=== PATIENT | male | born 1985 | race Two or more races ===

== ENCOUNTER 2024-11-04 10:13 | Emergency (ER) | payer MEDICAID, SELFPAY ==
[2024-11-04 10:26] VITALS: BP 103/69; PULSE 75; RESP 18; TEMP 37.1; O2SAT 98; BMI 17.3
--- NOTE | 2024-11-04 10:40 | PD.EDRME ---
Rapid Medical Screening Exam RME Arrival date/time: 11/04/24 10:13 39-year-old male presents emergency department today for concerns of elevated blood sugar patient reports no chest pain no shortness of breath no headache dizziness weakness Chief Complaint: General Adult/Misc Complain Vital signs: Vital Signs Temperature 98.7 F 11/04/24 10:26 Pulse Rate 75 11/04/24 10:26 Respiratory Rate 18 11/04/24 10:26 Blood Pressure 103/69 11/04/24 10:26 Pulse Oximetry (%) 98 11/04/24 10:26 Oxygen Delivery Method Room Air 11/04/24 10:26
[2024-11-04 11:34] LABS: Base Excess, Venous 1 (-3-3); O2 Saturation, Venous 91 % (96-97); PCO2, Venous 37 mmHg (36-56); PO2, Venous 56 mmHg (15-58); pH, Venous 7.44 (7.33-7.66)
[2024-11-04 11:38] LABS: Beta Hydroxybutyrate 0.1 mmol/L (<0.6)
[2024-11-04 11:48] LABS: Basophils % (Auto) 0 % (0-2.5); Eosinophils % (Auto) 0 % (0-10); Hematocrit 33.4 % (41.0-53.0); Hemoglobin 12.4 g/dL (13.5-16.0); Immature Granulocytes % (Auto) 1 % (0-0); Immature Granulocytes Auto 0.04 Thou/mm3 (0.00-0.00); Lymphocytes # (Auto) 1.4 Thou/mm3 (1.0-4.8); Lymphocytes % (Auto) 21 % (10-50); Mean Corpuscular HGB Conc 37.1 g/dl (31.0-37.0); Mean Corpuscular Hemoglobin 33.2 pg (25.0-35.0); Mean Corpuscular Volume 90 fL (80-100); Monocytes # (Auto) 0.5 Thou/mm3 (0.0-0.8); Monocytes % (Auto) 7 % (0-12); Neutrophils # (Auto) 4.8 Thou/mm3 (1.8-7.7); Neutrophils % (Auto) 71 % (37-80); Nucleated Red Blood Cell % 0 /100 WBC (0); Platelet Count 234 Thou/mm3 (140-440); RDW Standard Deviation 39.2 fL (35.1-43.9); Red Blood Count 3.73 Miln/mm3 (4.50-5.90); White Blood Count 6.8 Thou/mm3 (3.8-10.6)
[2024-11-04 12:06] LABS: Collection Type, Urine Clean Catch
[2024-11-04 12:11] LABS: Alanine Aminotransferase 89 U/L (10-49); Albumin, Serum 3.5 gm/dL (3.5-5.0); Albumin/Globulin Ratio 1.3 (1.2-2.2); Alcohol, Blood Medical < 10.0 mg/dL (0-10.0); Alkaline Phosphatase 155 U/L (46-116); Anion Gap 6 (7-16); Aspartate Amino Transferase 69 U/L (0-34); BUN/Creatinine Ratio 9 Ratio (12-20); Bilirubin,Total 0.5 mg/dL (0.3-1.2); Blood Urea Nitrogen 8 mg/dL (9-23); Calcium 7.8 mg/dL (8.3-10.6); Calcium (Corrected) 8.2 mg/dL (8.5-10.1); Chloride 94 mMol/L (98-107); Creatinine (Component) 0.9 mg/dL (0.6-1.3); Globulin 2.6 gm/dL (2.3-3.5); Glucose Estimated Average 355 mg/dL (80-131); Hemoglobin A1C > 14.0 % Hgb (4.8-6.0); Osmolality,Calculated 285 (275-295); Potassium 4.4 mMol/L (3.4-5.1); Sodium 123 mMol/L (136-145); Total Protein 6.1 gm/dL (5.7-8.2); eGFR > 60 See Note
[2024-11-04 12:16] LABS: Glucose 792 mg/dL (74-106)
[2024-11-04 12:17] LABS: Bilirubin,Urine Negative (Negative); Blood,Urine Negative (Negative); Clarity,Urine Clear (Clear/Hazy); Color,Urine Colorless (Lt Yel-Yel); Culture Indicated,Urine Not Indicated; Glucose, Urine 4+ (Negative); Ketones,Urine Negative (Negative); Leukocyte Esterase,Urine Negative (Negative); Nitrite,Urine Negative (Negative); Protein,Urine Negative (Neg - Trace); RBC,Urine 2 /hpf (0-3); Specific Gravity,Urine 1.035 (1.001-1.035); Squamous Epithelial Cell,Urine < 1 /hpf (0-5); Urobilinogen,Urine Negative mg/dL (0.0-1.0); WBC,Urine < 1 /hpf (0-5)
--- NOTE | 2024-11-04 13:20 | EDNOTE_ITS ---
ED General RME/HPI General Chief complaint: General Adult/Misc Complain Stated complaint: MY DIABETES IS HIGH Time Seen by Provider: 11/04/24 11:55 Arrival date/time: 11/04/24 10:13 39-year-old male with a history of diabetes presents to the emergency department today for elevated blood sugar. He denies any recent illness with fever, chills, cough, upper respiratory complaints, nausea, vomiting, diarrhea or abdominal pain. He states he has been taking his medications as prescribed however he has not seen his primary care physician since January,. He complains of polydipsia, weight loss, and muscle wasting. Mode of arrival: ambulatory Limitations: language barrier RME / HPI RME / HPI narrative: 11/04/24 10:13 39-year-old male presents emergency department today for concerns of elevated blood sugar patient reports no chest pain no shortness of breath no headache dizziness weakness Related Data Previous Rx's ?Medication ?Instructions ?Recorded blood sugar diagnostic (Blood #50 ea 07/08/23 Glucose Test strips) blood-glucose meter #1 ea 07/08/23 clotrimazole 1 % topical cream 1 applic top BID #15 gr ams 07/08/23 (Antifungal (clotrimazole)) lancets #100 ea 07/08/23 metformin 500 mg tablet 500 mg PO BID #60 tabs 07/08 insulin degludec 100 unit/mL (3 20 unit (0.2 mL) subcu t QDAY #15 mL 07/09/23 mL) subcutaneous pen (Tresiba FlexTouch U-100 insulin) metronidazole-skin cleanser #23 1 ea topical BID #1 ea 07/09/23 0.75 % top,cleanser and cream kit sitagliptin phosphate 100 mg 100 mg PO QDAY #30 tabs 0 07/09/23 tablet (Januvia) Allergies Allergy/AdvReac Type Severity Reaction Status Date / Time No Known Allergies Allergy Verified 11/04/24 10:16 ED Exam Narrative Physical exam: Thin, cachectic appearing 39-year-old male, no respiratory distress noted. General Limitations: Present language barrier Course Orders Category Date Time Status Technical Support Professional STAT Care 11/04/24 12:57 Active DKA Protocol QSHIFT Care 11/04/24 12:57 Active Insert IV NOW Care 11/04/24 10:39 Active Insert IV STAT Care 11/04/24 12:57 Active Intake and Output Routine Care 11/04/24 12:57 Ordered NPO NOW Care 11/04/24 12:58 Active Notify provider NEEDED Care 11/04/24 12:57 Active A1C [Glycohemoglobin w (eAG)] Stat Lab 11/04/24 11:25 Completed Alcohol, Blood Medical Stat Lab 11/04/24 11:25 Completed Beta Hydroxybutyrate Stat Lab 11/04/24 11:25 Completed Blood Culture (Lab) Stat Lab 11/04/24 12:57 Ordered CBC Stat Lab 11/04/24 11:25 Completed Comprehensive Metabolic Panel Stat Lab 11/04/24 11:25 Completed Drug Screen,Urine Stat Lab 11/04/24 12:01 Ordered Lactate (Lactic Acid) Stat Lab 11/04/24 12:57 Ordered Mag [Magnesium] Stat Lab 11/04/24 11:56 Ordered Magnesium Stat Lab 11/04/24 12:57 Ordered Phosphorous Stat Lab 11/04/24 12:57 Ordered UA, C/S IF [Urinalysis, C/S if Indicated] Stat Lab 11/04/24 11:56 Completed VBG [Venous Blood Gas] Stat Lab 11/04/24 11:25 Completed Dextrose 5%-Lactated Ringers [D5-Lr] 1,000 ml Med 11/04/24 12:56 Active IV 250 mls/hr Dextrose 50% Syr [D50w Syringe Abboject] Med 11/04/24 12:56 Active 25 ml IV [id number] PRN Insulin Regular Med 11/04/24 12:56 Discontinued 10 unit IV X1 ONE Ringers Lactated 1000 ml [Lactated Ringers] 1,000 ml Med 11/04/24 13:00 Active IV Q1H Vital Signs Vital signs: Vital Signs Temperature 98.7 F 11/04/24 10:26 Pulse Rate 75 11/04/24 10:26 Respiratory Rate 18 11/04/24 10:26 Blood Pressure 103/69 11/04/24 10:26 Pulse Oximetry (%) 98 11/04/24 10:26 Oxygen Delivery Method Room Air 11/04/24 10:26 Discharge Plan Prescriptions/Referrals Prescriptions/Med Rec: No Action clotrimazole [Antifungal (clotrimazole)] 1 % Cream 1 applic top BID Qty: 15 0RF metformin 500 mg tablet 500 mg PO BID Qty: 60 2RF (DME) blood-glucose meter Kit See Rx Instructions .Route Qty: 1 0RF Rx Instructions: As directed (DME) Blood Glucose Test Strip See Rx Instructions .Route Qty: 50 2RF Rx Instructions: As directed (DME) lancets Misc See Rx Instructions .Route Qty: 100 2RF Rx Instructions: As directed insulin degludec [Tresiba FlexTouch U-100] 100 unit/mL (3 mL) insulin pen 20 unit subcut QDAY Qty: 15 2RF Januvia 100 mg tablet 100 mg PO QDAY Qty: 30 2RF metronidazole-skin cleansr #23 0.75 % kit,cleanser and cream 1 ea topical BID Qty: 1 0RF Patient/Caregiver Discharge Instructions Print Language: Ivorian MDM Medication Administration(s) Medication Administration History Dextrose (Dextrose 50%-Water Inj 50 Ml Syringe) 25 ml IV PRNMRX1 PRN PRN Reason: Blood Sugar - Low Dextrose/Lactated Ringer's (D5-Lr) 1,000 mls @ 250 mls/hr IV .Q4H PRN PRN Reason: PER PROTOCOL Stop: 12/04/24 12:55 Lactated Ringer's (Lactated Ringers) 1,000 mls @ 1,000 mls/hr IV Q1H SHARITA Stop: 11/04/24 14:59 Discontinued Medications Insulin Human Regular (Insulin Hum Regular 1 Unit/0.01 Ml (Per Unit)) 10 unit IV X1 ONE Stop: 11/04/24 12:57
[2024-11-04] MEDS: RINGERS LACTATED 1000 ML 1,000 ML IV ×2 (13:35→14:59)
[2024-11-04 14:33] LABS: Lactate (Lactic Acid) 2.2 mMol/L (0.4-2.0)
[2024-11-04 14:50] LABS: Magnesium 1.7 mg/dL (1.6-2.6)
[2024-11-04 14:52] LABS: Magnesium 1.7 mg/dL (1.6-2.6)
[2024-11-04] MEDS: INSULIN HUM REGULAR 1 UNIT/0.01 ML (PER UNIT) 10 UNIT SC (16:25)
[2024-11-04 17:28] LABS: Reflex Lactate? Y
[2024-11-04 17:53] LABS: Lactic Acid, 3 HR 1.3 mMol/L (0.4-2.0)
[2024-11-04 21:30] LABS: Amphetamine/Methamp Scrn,U Negative (Negative); Barbiturate Screen,Urine Negative (Negative); Benzodiazepines Screen,Urine Negative (Negative); Benzoylecgonine Screen, Ur Negative (Negative); Fentanyl Screen,Urine Negative (Negative); Opiate Screen,Urine Negative (Negative); THC Screen,Urine Negative (Negative)
== END 2024-11-04 17:55 | disposition left against medical advice (07) ==
PROVIDERS: Nurse Practitioner Primary Care; Physician Assistant; Emergency Provider Family Medicine
DX: E11.65 Type 2 diabetes mellitus with hyperglycemia (principal); R64 Cachexia; Z68.1 Body mass index [BMI] 19.9 or less, adult; Z79.4 Long term (current) use of insulin; Z79.84 Long term (current) use of oral hypoglycemic drugs; Z53.29 Procedure and treatment not carried out because of patient's decision for other reasons
CPT/HCPCS: 36415; 80053; 80307; 80320; 81001; 82010; 82803; 83036; 83605; 83735; 84100; 85025; 87040; 96360; 96361; 96372; 99284; J1815; J7120; G0480

== ENCOUNTER 2025-01-07 10:40 | Emergency (ER) | payer MEDICAID, SELFPAY ==
[2025-01-07 11:24] VITALS: BP 102/71; PULSE 71; RESP 16; TEMP 37; O2SAT 99
--- NOTE | 2025-01-07 11:43 | XR_ITS ---
Examination: Ribs, left, with PA chest, 5 views Technique: Chest PA, RIBS AP, RPO, LPO, AP coned lower ribs 5 views Exam date and time: January 07, 2025, 1148 hrs. Indications: Work injury to the left chest one week ago Findings: No pneumothorax. No acute displaced rib fractures Impression: No pulmonary contusion or hemothorax No acute rib fractures
--- NOTE | 2025-01-07 11:48 | PD.EDCHEST ---
ED Chest Pain RME/HPI General Chief Complaint: Chest Pain Stated Complaint: LEFT RIB PAIN W/ MOVEMENT POST FALL X 4 DAYS Time Seen by Provider: 01/07/25 10:52 Arrival date/time: 01/07/25 10:40 This is a 39-year-old male that tripped and fell onto a big box. Patient states he fell on his left rib. Patient states has been hurting since then. Denies any trouble breathing but hurts the left lateral area of his ribs. Patient reports history of diabetes Related Data Previous Rx's ?Medication ?Instructions ?Recorded blood sugar diagnostic (Blood #50 ea 07/08/23 Glucose Test strips) blood-glucose meter #1 ea 07/08/23 clotrimazole 1 % topical cream 1 applic top BID #15 grams 07/08/23 (Antifungal (clotrimazole)) lancets #100 ea 07/08/23 metformin 500 mg tablet 500 mg PO BID #60 tabs 07/08/23 insulin degludec 100 unit/mL (3 20 unit (0.2 mL) subcut QDAY #15 mL 07/09/23 mL) subcutaneous pen (Tresiba FlexTouch U-100 insulin) metronidazole-skin cleanser #23 1 ea topical BID #1 ea 07/09/23 0.75 % top,cleanser and cream kit sitagliptin phosphate 100 mg 100 mg PO QDAY #30 tabs 07/09/23 tablet (Januvia) Allergies Allergy/AdvReac Type Severity Reaction Status Date / Time No Known Allergies Allergy Verified 01/07/25 10:45 Course Orders Category Date Time Status XR ribs LT min 3V w CXR1V Stat Exams 01/07/25 11:43 Ordered Acetaminophen Tab [Tylenol ES Tab] Med 01/07/25 11:43 Discontinued 1,000 mg PO X1 ONE Ibuprofen Tab [Motrin Tab] Med 01/07/25 11:43 Discontinued 800 mg PO X1 ONE Vital Signs Vital signs: Vital Signs Temperature 98.6 F 01/07/25 11:24 Pulse Rate 71 01/07/25 11:24 Respiratory Rate 16 01/07/25 11:24 Blood Pressure 102/71 01/07/25 11:24 Pulse Oximetry (%) 99 01/07/25 11:24 Oxygen Delivery Method Room Air 01/07/25 11:24 Chest Pain Medications / Prescriptions Medication administrations:: Medication Administration History Discontinued Medications Acetaminophen (Acetaminophen 500 Mg Tablet) 1,000 mg PO X1 ONE Stop: 01/07/25 11:44 Ibuprofen (Ibuprofen Tab 400 Mg Tablet) 800 mg PO X1 ONE Stop: 01/07/25 11:44 Discharge Plan Prescriptions/Referrals Prescriptions/Med Rec: No Action clotrimazole [Antifungal (clotrimazole)] 1 % Cream 1 applic top BID Qty: 15 0RF metformin 500 mg tablet 500 mg PO BID Qty: 60 2RF (DME) blood-glucose meter Kit See Rx Instructions .Route Qty: 1 0RF Rx Instructions: As directed (DME) Blood Glucose Test Strip See Rx Instructions .Route Qty: 50 2RF Rx Instructions: As directed (DME) lancets Misc See Rx Instructions .Route Qty: 100 2RF Rx Instructions: As directed insulin degludec [Tresiba FlexTouch U-100] 100 unit/mL (3 mL) insulin pen 20 unit subcut QDAY Qty: 15 2RF Januvia 100 mg tablet 100 mg PO QDAY Qty: 30 2RF metronidazole-skin cleansr #23 0.75 % kit,cleanser and cream 1 ea topical BID Qty: 1 0RF Patient/Caregiver Discharge Instructions Print Language: Lao
[2025-01-07] MEDS: ACETAMINOPHEN 500 MG TABLET 1000 MG PO (12:25)
[2025-01-07] MEDS: IBUPROFEN TAB 400 MG TABLET 800 MG PO (12:25)
--- NOTE | 2025-01-07 13:31 | PC.NURSE ---
called for pt from lobby/outside, no [id number] [phone]
--- NOTE | 2025-01-07 13:58 | PC.NURSE ---
CALLED FOR PT FROM LOBBY/OUTSIDE, NO [phone]
--- NOTE | 2025-01-07 14:00 | PD.EDRME ---
Rapid Medical Screening Exam E Arrival date/time: 01/07/25 10:40 This is a 39-year-old male that tripped and fell onto a big box. Patient states he fell on his left rib. Patient states has been hurting since then. Denies any trouble breathing but hurts the left lateral area of his ribs. Patient reports history of diabetes I have greeted and performed a focused initial assessment of this patient. Initial appropriate labs ordered at this time. A comprehensive ED assessment and evaluation of the patient and analysis of all test and completion of medical decision making process will be conducted by additional ED provider. Chief Complaint: Chest Pain Time Seen by Provider: 01/07/25 10:52 Vital signs: Vital Signs Temperature 98.6 F 01/07/25 11:24 Pulse Rate 71 01/07/25 11:24 Respiratory Rate 16 01/07/25 11:24 Blood Pressure 102/71 01/07/25 11:24 Pulse Oximetry (%) 99 01/07/25 11:24 Oxygen Delivery Method Room Air 01/07/25 11:24
== END 2025-01-07 14:10 | disposition left against medical advice (07) ==
LOC: SERX 14:15
PROVIDERS: Emergency Provider Emergency Medicine
DX: S29.9XXA Unspecified injury of thorax, initial encounter (principal); W01.0XXA Fall on same level from slipping, tripping and stumbling without subsequent striking against object, initial encounter; E10.9 Type 1 diabetes mellitus without complications; Z53.29 Procedure and treatment not carried out because of patient's decision for other reasons
CPT/HCPCS: 71101; 99283; A9270